=== PATIENT | male | born 1965 | race Caucasian/White ===

== ENCOUNTER → 2016-07-27 | Outpatient (CLI) | payer BC ==
--- NOTE | 2016-07-27 15:43 | XR ---
EXAMINATION TYPE: XR chest 2V DATE OF EXAM: 07/27/2016 3:32 PM COMPARISON: 01/16/2013 INDICATION: MRI clearance TECHNIQUE: Single frontal view of the chest is obtained. FINDINGS: The heart size is normal. The pulmonary vasculature is normal. The lungs are clear. 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 No epicardial leads are identified. Note is made of a cervical spine anterior cervical fusion plate. Gallstones may be present. IMPRESSION: 1. No acute pulmonary process. 2. No epicardial leads evident.
== END ==
LOC: RADXRMAIN 15:03
PROVIDERS: ATTEND Orthopaedic Surgery
DX: Z01.818 Encounter for other preprocedural examination (principal)
CPT/HCPCS: 71020

== ENCOUNTER → 2017-04-21 | Outpatient (CLI) | payer BC ==
[2017-04-21 12:36] LABS: ALT 53 U/L (21-72); AST 35 U/L (17-59); Alkaline Phosphatase 115 U/L (38-126); Anion Gap 9 mmol/L; Blood Urea Nitrogen 12 mg/dL (9-20); Calcium 10.1 mg/dL (8.4-10.2); Carbon Dioxide 27 mmol/L (22-30); Chloride 106 mmol/L (98-107); Cholesterol 180 mg/dL (<200); Glucose 133 mg/dL (74-99); HDL Cholesterol 31 mg/dL (40-60); Non-African American GFR(MDRD) >60 (>60 ml/min/1.73 sqM); Potassium 4.7 mmol/L (3.5-5.1); Sodium 142 mmol/L (137-145); Total Bilirubin 0.8 mg/dL (0.2-1.3); Total Protein 7.4 g/dL (6.3-8.2)
== END | disposition home or self-care (01) ==
LOC: LABWHC1 10:56
PROVIDERS: ATTEND Internal Medicine Clinical Cardiac Electrophysiology
DX: I25.10 Atherosclerotic heart disease of native coronary artery without angina pectoris (principal); E78.5 Hyperlipidemia, unspecified
CPT/HCPCS: 36415; 80053; 80061

== ENCOUNTER → 2017-12-08 | Outpatient (CLI) | payer BC ==
--- NOTE | 2017-12-08 15:56 | US ---
EXAMINATION TYPE: US thyroid st tissue head/neck DATE OF EXAM: 12/08/2017 COMPARISON: NONE CLINICAL HISTORY: E03.9 HYPOTHYROIDISM. Hypothyroidism, on thyroid meds GLAND SIZE: Right Lobe: 4.6 x 2.1 x 2.1 cm Overall Parenchyma: heterogenous Left Lobe: 5.0 x 2.7 x 2.6 cm Overall Parenchyma: heterogeneous Isthmus Thickness: 0.9 cm NODULES RIGHT: # of nodules measured on right: 0 LEFT: # of nodules measured on left: 0 ISTHMUS: # of nodules measured in the isthmus: 0 Difficult and limited visualization due to patient unable to hyperextend neck due to previous neck surgery. Bilateral neck scanned, no evidence of lymphadenopathy. Markedly heterogeneous normal-sized thyroid without discrete nodule identified on images saved. Subop timal study due to above limitations per technologist. IMPRESSION: Markedly heterogeneous normal-sized thyroid without discrete nodules.
== END | disposition home or self-care (01) ==
LOC: RADUSWWP 15:15
PROVIDERS: ATTEND Internal Medicine
DX: E03.9 Hypothyroidism, unspecified (principal)
CPT/HCPCS: 76536

== ENCOUNTER → 2023-10-09 | Outpatient (CLI) | payer BC ==
[2023-10-09 22:39] LABS: Basophils # (A) 0.03 X 10*3/uL (0.00-0.10); Basophils % (A) 0.4 %; Eosinophils # (A) 0.12 X 10*3/uL (0.04-0.35); Eosinophils % (A) 1.7 %; HCT 46.6 % (39.6-50.0); HGB 15.1 g/dL (13.0-17.0); Lymphocytes # (A) 1.34 X 10*3/uL (0.90-5.00); Lymphocytes % (A) 19.2 %; MCH 28.1 pg (27.0-32.0); MCHC 32.4 g/dL (32.0-37.0); MCV 86.6 FL (80.0-97.0); Mean Platelet Volume 10.2 FL (9.5-12.2); Monocytes % (A) 8.6 %; NRBC Per 100 WBC 0 X 10*3/uL (0.00-0.01); Neutrophils # (A) 4.82 X 10*3/uL (1.80-7.70); Platelet Count 251 X 10*3/uL (140-440); RBC 5.38 X 10*6/uL (4.40-5.60); RDW 13.5 % (11.5-14.5); WBC 6.99 X 10*3/uL (4.50-10.00)
[2023-10-09 23:14] LABS: ALT 50 U/L (10-49); AST 33 U/L (14-35); Albumin 4.8 g/dL (3.8-4.9); Albumin/Globulin Ratio 1.92 Ratio (1.60-3.17); Alkaline Phosphatase 132 U/L (41-126); BUN/Creat Ratio 13.12 Ratio (12.00-20.00); Blood Urea Nitrogen 10.5 mg/dL (9.0-27.0); Calcium 9.8 mg/dL (8.7-10.3); Carbon Dioxide 27.5 mmol/L (21.6-31.8); Chloride 97 mmol/L (96-109); Chol/HDL Ratio 2.87 Ratio; Globulin 2.5 g/dL (1.6-3.3); Glucose 112 mg/dL (70-110); Potassium 4.7 mmol/L (3.5-5.5); Sodium 143 mmol/L (135-145); Total Bilirubin 0.6 mg/dL (0.3-1.2); Total Protein 7.3 g/dL (6.2-8.2)
[2023-10-09 23:18] LABS: Microalbumin Creatinine Ratio <15 mg/g Cr (0-30); Urine Creatinine 80.9 mg/dL (39.0-259.0)
== END | disposition home or self-care (01) ==
LOC: LABWHC1 10:50
PROVIDERS: ATTEND Family Medicine
DX: I10 Essential (primary) hypertension (principal); I25.709 Atherosclerosis of coronary artery bypass graft(s), unspecified, with unspecified angina pectoris; E11.65 Type 2 diabetes mellitus with hyperglycemia; E06.3 Autoimmune thyroiditis; E55.9 Vitamin D deficiency, unspecified; E53.8 Deficiency of other specified B group vitamins
CPT/HCPCS: 36415; 80053; 80061; 82043; 82306; 82570; 82607; 83036; 84443; 85025

== ENCOUNTER → 2024-03-28 | Outpatient (CLI) | payer BC ==
--- NOTE | 2024-03-28 11:23 | XR ---
EXAMINATION TYPE: XR cervical spine comp DATE OF EXAM: 03/28/2024 11:07 AM INDICATION: Patient age:Male; 58 years old; Reason for study: G24.3 torticollis; PHH. COMPARISON: MRI cervical spine 10/09/2010 TECHNIQUE: The cervical spine was imaged in frontal, lateral, bilateral oblique, odontoid, and swimme r's projections. FINDINGS: Postsurgical changes from ACDF C4-C6. Hardware appears intact with appropriate alignment. Diffuse bon e demineralization. Median sternotomy wires identified. The osseous structures show normal alignment without evidence of an acute fracture. Prominent anterior osteophyte at C2-C3. There is fusion of C3- C4 and C4-C5. Multilevel disc space narrowing with endplate sclerosis. Multilevel facet arthropathy. At least mild bilateral neural foraminal stenosis at C4-C5. Pedicles are intact. Soft tissues are wi thin normal limits. The odontoid appears intact. Carotid bilateral calcifications. IMPRESSION: 1. No fracture or dislocation. 2. Postsurgical changes from ACDF C4-C6. Hardware appears intact. 3. Advanced multilevel degenerative disc disease and facet arthropathy. [facility], , 03/28/2024 11:21 AM
== END | disposition home or self-care (01) ==
LOC: RADXRMAIN 10:46
PROVIDERS: ATTEND Family Medicine
CPT/HCPCS: 72050

== ENCOUNTER → 2024-08-29 | Outpatient (CLI) | payer BC ==
[2024-08-29 10:47] LABS: African American GFR (CKD) >90 (>60 ml/min/1.73 sqM); Blood Urea Nitrogen 11 mg/dL (9-20); Non-African American GFR(CKD) >90 (>60 ml/min/1.73 sqM)
--- NOTE | 2024-08-29 11:24 | CT ---
EXAMINATION TYPE: CT chest w con DATE OF EXAM: 08/29/2024 11:12 AM COMPARISON: No CT, chest radiograph 07/27/2016 CLINICAL INDICATION: Male, 58 years old with history of R91.1 SOLITARY PULMONARY NODULE; PHH, Solitar y Pulmonary Nodule TECHNIQUE: Multiple axial images were obtained through the chest. Sagittal and coronal reformats were created for review. MIP was performed on a separate workstation. Contrast used:100 ml mL of Isovue 300 with IV Contrast (None if empty) Oral contrast used: (None if empty) CT DLP: 589 mGycm, Automated exposure control for dose reduction was used. FINDINGS: LUNGS/ PLEURA: No focal consolidation, pneumothorax or pleural effusion. Left upper lung 4 mm pulmona ry nodule. Series 7 image 3. Suspected minor fissure on the left lung. AIRWAY: Patent and unremarkable. HEART: Cardiomegaly is demonstrated. Mild coronary artery calcifications present. MEDIASTINUM: No gross evidence of adenopathy. VASCULATURE: No aortic aneurysm. MUSCULOSKELETAL: Moderate disc degeneration changes are present throughout the thoracolumbar spine se condary to osteophyte formation and facet joint arthropathy. Bridging syndesmophytes throughout the s pine., sternotomy wires present. SOFT TISSUES/LYMPH NODES: Unremarkable. LOWER NECK: Enlarged left thyroid gland UPPER ABDOMEN: Cholelithiasis. IMPRESSION: 1. No clinically significant pulmonary nodules. 4 mm left upper lobe pulmonary nodule. Consider foll ow-up imaging in 12 months if the patient is at high risk. No prior CT was available for comparison. 2. Cholelithiasis. 3. Mild cardiomegaly. 4. Postsurgical changes to the coronary arteries of coronary artery atherosclerosis. 5. Diffuse idiopathic skeletal hyperostosis. Follow up recommendations for incidental pulmonary nodules, if there are any, are per [employer] [employer] or [employer]. [email or web address].[email or web address]/[email or web address]?lang=us [facility], , 08/29/2024 11:22 AM
== END | disposition home or self-care (01) ==
LOC: RADCTMAIN 10:00
PROVIDERS: ATTEND Family Medicine
DX: I25.10 Atherosclerotic heart disease of native coronary artery without angina pectoris (principal); R91.1 Solitary pulmonary nodule; I51.7 Cardiomegaly; K80.20 Calculus of gallbladder without cholecystitis without obstruction; M48.10 Ankylosing hyperostosis [Forestier], site unspecified
CPT/HCPCS: 82565; 84520; 71260; 36415; Q9967